=== PATIENT | female | born 1980 | race Caucasian/White ===

== ENCOUNTER 2022-08-18 11:34 | Day surgery (SDC) | payer BC, SELFPAY ==
--- NOTE | 2022-08-16 16:37 | HP.PCM_ITS ---
History and Physical Date of Admission: 08/18/22 Pre-Op History and Physical ? HPI: The patient is a 41 year old female presenting for discussion regarding surgical management of large protruding endocervical polyp. Patient is a patient of Dr. Stu Francisco has been seen in the office for a large 3 cm endocervical polyp. Would like surgical management at this time. Patient states she has had previous surgeries performed before patient states this polyp is affecting her life as she does have irregular bleeding with it. She does not ice when the polyp does protrude out and it tends to protrude out more with her menses. ? Pre-operative visit. She is scheduled for Hysteroscopy D&C and polypectomy with sypmphion, for endocervical polyp/abnormal uterine bleeding on 08/18/2022. Procedure discussed along with risks, benefits and complications. Other alternatives discussed for management. Consent form signed? Yes. ? ? PAST MEDICAL HISTORY No past medical history on file. ? ? PAST SURGICAL HISTORY PAST SURGICAL HISTORY Procedure Laterality Date ? D&C, DIAG AND/OR THERAPEUTIC ? ? ? Polyp ? REMOVAL GALLBLADDER ? CURRENT MEDICATIONS No current outpatient medications on file. ? No current facility-administered medications for this visit. ? ? ALLERGIES: Penicillins and Prednisone ? PERSONAL HISTORY: SOCIAL HISTORY Social History ? Tobacco Use ? Smoking status: Never ? Smokeless tobacco: Never Vaping Use ? Vaping Use: Never used Substance Use Topics ? Alcohol use: Yes ? ? Comment: occasionally ? Drug use: Never ? FAMILY HISTORY: FAMILY HISTORY No family history on file. ? REVIEW OF SYMPTOMS: negative except as noted above PHYSICAL EXAMINATION: ? VITALS: Blood pressure 116/60, weight 134 lb (60.8 kg), last menstrual period 07/19/2022. ? GENERAL: The patient is well nourished, well hydrated in no acute distress. , The patient is oriented to time, place, and person. NECK: full range of motion ? ? IMPRESSION: Large protruding endocervical polyp with abnormal uterine bleeding ? PLAN: Hysteroscopy, D&C, polypectomy with symphion ? Pt has been counseled on risks/benefits and alternatives of surgery including but not limited to anesthesia, bleeding, infection, uterine perforation with subsequent injury to pelvic structures including bowel, bladder, ureters and vessels. Pt wishes to proceed with surgery at this time. ? Reviewed pre and Post operative instructions ? Consent signed. ? ? I have reviewed and updated past medical and surgical history, medications and allergies Shakira Kwan MD ?4:40 PM Office Visit on 07/31/2022 Office Visit on 07/31/2022 Note shared with patient
[2022-08-18] VITALS (7 sets, daily range): BP systolic 103–123; BP diastolic 64–79; PULSE 60–88; RESP 16–18; TEMP 36.4–36.9; O2SAT 100; BMI 23.9
[2022-08-18 12:09] LABS: Internal QC Validated? YES +Cl - CLEAR BKGD; Pregnancy, Urine Negative Negative
[2022-08-18] MEDS: Lactated Ringers 1,000 ML 15 ML IV (12:20)
[2022-08-18 12:35] LABS: Hematocrit 37.2 % (37-47); Hemoglobin 11.9 g/dL (12.0-15.0); Mean Corpuscular Hgb 29.1 pg (27.0-32.0); Mean Platelet Vol. 9.2 fl (6.2-12.0); Platelet Count 335 K/mm3 (150-450); RBC Distribution Width CV 12.9 % (11.6-14.6); RBC Distribution Width SD 42.8 fl (35.1-43.9); Red Blood Count 4.09 M/mm3 (4.2-5.4); White Blood Count 4.6 K/mm3 (4.4-11.0)
--- NOTE | 2022-08-18 12:55 | EMB_PTH ---
PATIENT: VLADIMIR BARBER LOC: [facility] [place] U#:[id number] AGE/SX: 42/F ROOM: RE08/18/[address]: Dr. Shakira Guaman, MDDOB: 1980 BED: DIS: 08/18/2022 SPEC #: [id number] RECD: 08/18/22 16:39 STATUS: LYNNETTE RACHEL #: [id number] VIOLETTA: 08/18/22 12:[address]: Shakira Guaman DEPT: SURGICAL PATHOLOGY RECD BY: Harmony Wellington ENTERED: 08/21/22 10:33 SP TYPE: ENDOM BX/C JH DR: No Primary Care Phys Tissues: Endometrium, NOS Procedures: Surgery Specimen Level IV HEADER OPERATION: Hysteroscopy, D & C Symphion, polypectomy PRE-OP DIAGNOSIS: Large protruding endocervical polyp with abnormal uterine bleeding TISSUE SUBMITTED: Endocervical polyp, endometrial curettings MICROSCOPIC DIAGNOSIS Endocervical polyp and endometrial curettings, D & C and polypectomy: Endometrial polyp with disordered proliferative endometrium to simple endometrial hyperplasia without atypia. Additional fragment of endometrial tissue with disordered proliferative endometrium. Fragments of benign endocervical mucosa. See comment. SILVA:tamara 08/22/2022 COMMENT The endometrial polyp also shows underlying myometrium. This case has been reviewed in consultation with Dr. Bernard who concurs with the above diagnosis. MICROSCOPIC DESCRIPTION Slides are reviewed. GROSS DESCRIPTION Received in fixative is one container labeled with the patient's name and designated endocervical polyp, endometrial curettings. The specimen consists of a pink, congested polyp measuring 2 x 2 x 2 cm. The polyp is serially sectioned and reveals congested and solid cut surfaces. Also present in the container are multiple fragments of asini soft tissue mixed with hemorrhagic soft tissue measuring in aggregate 2.5 x 2.5 x 0.2 cm. The entire specimen is submitted in five cassettes. Cassette 1-4 contains the polyp. / SILVA:tamara 08/21/2022 TC:5 CPT: 32924
--- NOTE | 2022-08-18 14:16 | DCINST_ITS ---
Discharge Instructions Follow Up Care Test Results: Test results from this visit will be discussed in further detail at your follow- up appointment, if applicable. Discharge Plan Admission Attending Provider: Shakira Guaman Primary Care Provider: Care Physician,No Primary Discharge Orders/Prescriptions Prescriptions: No Action NK Referrals / Follow Up: Care Physician,No Primary [Primary Care Provider] - Disposition Disposition (needs filled in before D/C Order can be placed): Home, Self Care
--- NOTE | 2022-08-18 14:42 | PCM.OPRPT ---
Report of Operation Date of Procedure: 08/18/22 Pre-Operative Diagnosis: Endocervical polyp, AUB Post-Operative Diagnosis: Same Surgery/Procedure Performed:: Hysteroscopy, D&C, polypectomy Description of Surgical Findings:: Large endocervical polyp protruding from cervical OS, small stalk in endocervix. Both tubal ostia visualized. Surgeon: Shakira Guaman Type of Anesthesia: MAC Special Medications: none Specimen's removed: enodometrial curettings, endocervical polyp Estimated Blood Loss (mL): <5cc Fluids Replaced: 200 Description of Procedure: Informed consent was obtained the patient was taken the operating room she was placed in supine position. She was given anesthesia. She was then placed in the [facility] where she was prepped and draped in the normal sterile fashion. At this time the weighted speculum was placed in the posterior fornix of vagina. Single-tooth tenaculum was used to gently grasp the anterior lip the cervix. Large endocervical polyp protruding. At this time the polyp was grasped and twisted with ring clamp and removed. Dilatation was not performed as cervix was dilated from polyp- the hysteroscope using normal saline as a distention medium was placed. Tubal ostia visualized. stalk was noted in endocervical canal.At This time hysteroscopy was complete. Aveta Flex resecting device used to obtain endometrial curettings and to perform polypectomy of remaining stalk. Tissue will be sent to pathology for evaluation. Tenaculum removed. Good hemostasis. Instrument, lap count correct x 2. fluid deficit 140cc. Vaginal Sweep was negative. Grafts/Implants Used: none Procedure Start Time: 14:25 Procedure Stop Time: 14:40 Complications none Admit VTE Documentation VTE Present on Admission: Yes VTE Mechan Device Prophylaxis: SCD's VTE Pharm Prophylaxis ordered?: No Reason prophylaxis not ordered:: Procedure Not Indicated
--- NOTE | 2022-08-18 15:52 | DCINST_ITS ---
Discharge Instructions Procedure D&C Diet Discharge Diet: No restrictions Activity May resume sexual activity in: 1 week Dressing / Incision Call your doctor if you observe: Fever of 101 or Higher, Inability to urinate, Using more than 1 pad per hour and Uncontrolled pain Follow Up Care Please Follow Up With: Shakira Guaman MD When: 1-2 weeks post OP if you need an appointment please call [phone] Test Results: Test results from this visit will be discussed in further detail at your follow- up appointment, if applicable. Discharge Plan Admission Attending Provider: Shakira Guaman Primary Care Provider: Care Physician,Tabitha Primary Discharge Orders/Prescriptions Prescriptions: No Action NK Referrals / Follow Up: Care Physician,No Primary [Primary Care Provider] - Disposition Disposition (needs filled in before D/C Order can be placed): Home, Self Care
== END 2022-08-18 16:12 | disposition home or self-care (01) ==
LOC: SDC 11:42 → AC 11:42
PROVIDERS: Referring Provider Obstetrics & Gynecology; Visit Provider Obstetrics & Gynecology
PROC: 0UB98ZZ Excision of Uterus, Via Natural or Artificial Opening Endoscopic (ICD-10-PCS; CPT 58558; principal; 2022-08-18 12:40)
DX: N84.1 Polyp of cervix uteri (principal); N85.01 Benign endometrial hyperplasia
CPT/HCPCS: 58558; 00952; 81025; 85027; 88305; J7120; J2405

== ENCOUNTER → 2022-09-14 | Outpatient (CLI) | payer BC, SELFPAY ==
[2022-09-14 17:51] LABS: Absolute Lymphocyte Count 2.09 X10^3/uL (0.83-4.51); Absolute Neutrophil Count 3.3 X10^3/uL (2.0-7.7); Basophil# 0.06 X10^3/uL; Eosinophils% 3.3 % (0-5); Hematocrit 40.7 % (37-47); Hemoglobin 12.4 g/dL (12.0-15.0); Lymphocyte # 2.09 X10^3/ul (0.83-4.51); Lymphocyte % 34.4 % (19-41); Mean Corp Hgb Conc 30.5 g/dL (32-36); Mean Corpuscular Hgb 28.2 pg (27.0-32.0); Mean Corpuscular Volume 92.7 fL (81-99); Mean Platelet Vol. 9.5 fl (6.2-12.0); Monocyte# 0.41 X10^3/uL; Monocyte% 6.7 % (0-10); NRBC Flagged by Analyzer 0 % (0-5); Neutrophil # 3.31 X10^3/uL (2.7-7.7); Neutrophil % 54.4 % (47-70); Platelet Count 347 K/mm3 (150-450); RBC Distribution Width CV 13.7 % (11.6-14.6); RBC Distribution Width SD 46.8 fl (35.1-43.9); Red Blood Count 4.39 M/mm3 (4.2-5.4); White Blood Count 6.1 K/mm3 (4.4-11.0)
[2022-09-14 18:21] LABS: AST(SGOT) 14 U/L (15-37); Alanine Aminotransfer ALT/SGPT 25 U/L (13-56); Albumin, Serum 3.9 g/dL (3.2-5.0); Alkaline Phosphatase 28 U/L (45-117); Anion Gap 7 (5-15); BUN 9 mg/dL (7-18); BUN/Creat Ratio 14.5 RATIO (10-20); Calcium,Total 9.1 mg/dL (8.5-10.1); Chloride 105 mmol/L (98-107); Cholesterol 184 mg/dL (200); Creatinine, Serum 0.62 mg/dL (0.55-1.02); EST Glomerular Filtration Rate 111 mL/min (>60); Est Glom Filt Rate - Afr Amer 134 mL/min (>60); Globulin 3.8 g/dL (2.2-4.2); Glucose 89 mg/dL (74-106); High Density Lipoprotein 88 mg/dL; Potassium 3.5 mmol/L (3.5-5.1); Protein, Total 7.7 g/dL (6.4-8.2); Sodium Level 139 mmol/L (136-145); Thyroid Stim Hormone (TSH) 1.54 uIU/mL (0.358-3.74); Triglycerides 34 mg/dL; Very Low Density Lipoprotein 7 mg/dL (5-40)
== END | disposition home or self-care (01) ==
LOC: MFPLAB 15:10
PROVIDERS: PCP Family Medicine; Referring Provider Family Medicine; Visit Provider Family Medicine
DX: Z00.00 Encounter for general adult medical examination without abnormal findings (principal); Z13.0 Encounter for screening for diseases of the blood and blood-forming organs and certain disorders involving the immune mechanism; Z13.220 Encounter for screening for lipoid disorders; Z13.29 Encounter for screening for other suspected endocrine disorder
CPT/HCPCS: 36415; 80053; 80061; 84443; 85025